=== PATIENT | male | born 1940 | race Caucasian/White ===

== ENCOUNTER → 2022-02-06 14:41 | Outpatient (BNVA) | payer MEDICARE, OTHER, SELFPAY | PROVIDERS: Family Provider Nurse Practitioner Family; PCP Family Medicine; Visit Provider Internal Medicine Cardiovascular Disease | DX: R06.02 Shortness of breath (principal); R94.31 Abnormal electrocardiogram [ECG] [EKG]; E78.2 Mixed hyperlipidemia; I07.1 Rheumatic tricuspid insufficiency; R00.2 Palpitations; F17.200 Nicotine dependence, unspecified, uncomplicated; I44.4 Left anterior fascicular block | CPT/HCPCS: 93005; 99204 ==

== ENCOUNTER 2022-02-27 12:15 | Outpatient (CLI) | payer MEDICARE, OTHER, SELFPAY ==
--- NOTE | 2022-02-27 13:00 | USCV_ITS ---
Lee Aiken Age: 81 Gender: M : 1940 Exam Date: 02/27/2022 12:54 Ordering Phys: Jarvis Delgadillo MD ([email or web address]) Technologist: TODD [place] [facility] [place]ication: sob, light headed BP: 130 / 70 HR: 53 Rhythm: Sinus Technical Quality: adequate MEASUREMENTS (Male / Female) Normal Values 2D ECHO LV Diastolic Diameter PLAX 3.7 cm 4.2 - 5.9 / 3.9 - 5.3 cm LV Systolic Diameter PLAX 1.5 cm IVS Diastolic Thickness 1.3 cm 0.6 - 1.0 / 0.6 - 0.9 cm IVS Systolic Thickness 1.9 cm LVPW Diastolic Thickness 1.4 cm 0.6 - 1.0 / 0.6 - 0.9 cm LVPW Systolic Thickness 2.0 cm LVOT Diameter 2.0 cm LV Ejection Fraction 2D Teich 89.8 % LV Ejection Fraction MOD 2C 57.9 % LV Ejection Fraction 2C AL 57.5 % LA Diameter 3.8 cm RA Width 3.5 cm RA Height 4.9 cm Aorta at Sinotubular Diameter 2.9 cm M-MODE MV E Point Septal Separation 0.2 cm DOPPLER AV Peak Velocity 111.0 cm/s LVOT Peak Velocity 94.0 cm/s AV Area Cont Eq vti 2.2 cm squared AV Area Cont Eq pk 2.7 cm squared MV Area PHT 3.3 cm squared MV E' Velocity 44.5 cm/s Mitral E to MV E' Ratio 12.7 Mitral E to LV E' Lateral Ratio 13.1 Mitral E to LV E' Septal Ratio 12.4 TR Peak Velocity 283.3 cm/s TR Peak Gradient 32.1 mmHg Right Atrial Pressure 8.0 mmHg Pulmonary Artery Systolic Pressu 40.1 mmHg PV Peak Velocity 68.0 cm/s FINDINGS Left Ventricle Normal left ventricular size and systolic function, EF 64 %. Mild left ventricular hypertrophy. No regional wall motion abnormalities. Grade I/IV diastolic dysfunction (abnormal relaxation filling pattern), normal to mildly elevated filling pressures. Right Ventricle The right ventricle is normal in size and function. Right Atrium The right atrium is normal in size. Left Atrium The left atrium is normal in size. Mitral Valve Thickened mitral valve. Mild mitral annular calcification. Trace mitral valve regurgitation. Aortic Valve Thickened aortic valve. Tricuspid Valve Mild tricuspid valve regurgitation. Pulmonic Valve Pulmonic valve not well visualized. Pericardium Normal pericardium without effusion. Aorta Normal ascending aorta dimension. IVC Normal inferior vena cava. CONCLUSIONS Normal left ventricular size and systolic function, EF 64 %. Mild left ventricular hypertrophy. No regional wall motion abnormalities. Grade I/IV diastolic dysfunction (abnormal relaxation filling pattern), normal to mildly elevated filling pressures. Thickened mitral valve. Mild mitral annular calcification. Trace mitral valve regurgitation. Thickened aortic valve. Mild tricuspid valve regurgitation. Mild pulmonary hypertension, estimated pulmonary artery peak systolic pressure 40 mmHg There is no pericardial effusion. There are no intracardiac masses. No similar previous studies are available for comparison Dr Jarvis Delgadillo MD [facility] (Electronically Signed) Final Date: 28 February 2022 01:15 S
== END 2022-02-27 12:16 | disposition home or self-care (01) ==
PROVIDERS: PCP Family Medicine; Visit Provider Internal Medicine Cardiovascular Disease
DX: R06.00 Dyspnea, unspecified (principal); I08.3 Combined rheumatic disorders of mitral, aortic and tricuspid valves; I27.20 Pulmonary hypertension, unspecified
CPT/HCPCS: 93306

== ENCOUNTER 2022-04-07 06:39 | Outpatient (CLI) | payer MEDICARE, OTHER, SELFPAY ==
--- NOTE | 2022-04-07 | ECG_ITS ---
[facility] Test Date: 2022-04-07 Pat Name: Lee Aiken Department: Room: Gender: Male Plan Consultant: Rena Carney : 1940 Requested By: Jarvis Delgadillo Order Number: [id number] Nayan MD: Hui Torre M.D. Interpretive Statements NAME OF STUDY: LEXISCAN SESTAMIBI STRESS TEST INDICATION: SOB, fatigue PROCEDURE: At the baseline, the blood pressure was 128/79 mmHg with a heart rate of 51 bpm. The electrocardiogram showed sinus bradycardia with PAC, left anterior fascicular block. Possible old septal infarct. The Lexiscan was infused over a period of 20 seconds. A total of 0.4 milligrams of Lexiscan was infused. The stress phase was continued for a total of 5 minutes. Heart rate at the end of the stress phase was 73 bpm with a blood pressure of 121/61 mmHg. The EKG at the peak infusion revealed sinus rhythm at 73 bpm with no significant ST-T wave changes. The study was terminated due to protocol completion. Sestamibi was injected 20 seconds after the Lexiscan infusion. Blood pressure at the end of the recovery phase was 135/70 mmHg with a heart rate of 74 beats per minute. CONCLUSION: 1. No significant EKG changes with the LexiScan infusion. 2. No LexiScan induced chest pain or cardiac arrhythmia. 3. Normal blood pressure and heart rate response. 4. Sestamibi/sestamibi perfusion scan pending; see separate report. Electronically Signed On 04-10-2022 12:48:38 CDT by Hui Torre M.D. [id number]
[2022-04-07 06:54] VITALS: BMI 25.0
--- NOTE | 2022-04-07 06:54 | NMCV_ITS ---
NM salma perf SPECT r/s* [id number] Lee Aiken Age: 82 Gender: M : 1940 Exam Date: 04/07/2022 07:48 Ordering Phys: Jarvis Delgadillo MD ([email or web address]) Technologist: ALVINA Bullard Exam Location: [facility] Indications: CHEST PAIN STRESS TEST Please see separate stress test report in [facility] for full findings IMAGE PROTOCOL Rest/Stress 1 Lexiscan Day Radiopharmaceutical Dose (mCi) Administration Site Administered by Rest: Tc-99m 10.7 IV ALVINA Sharma Sestamibi Stress:Tc-99m 32.5 IV ALVINA Sharma Sestamibi Rest: 07-Apr-2022 60 Discovery 630 Stress: 07-Apr-2022 30 Discovery 630 0.4mg Lexiscan. Images obtained in supine and prone position. SPECT RESULTS Technical Quality: Excellent Raw Data Analysis: Normal Image Corrections: No attenuation or motion correction applied Summed Stress Score: 0 Summed Rest Score: 0 Summed Difference Score: 0 PERFUSION FINDINGS SPECT images demonstrate homogeneous tracer distribution throughout the myocardium. FUNCTIONAL RESULTS (calculated via Gated SPECT) Stress Image LV EF (%): 67 Stress EDV (mL):97 TID: 0.96 Stress ESV (mL):32 FUNCTIONAL FINDINGS: The left ventricle is normal in size. Transient Ischemia Dilatation of 0.96. There is normal left ventricular systolic function. The left ventricular ejection fraction is normal with a value of 67%. There is normal left ventricular wall thickening. IMPRESSIONS 1. Myocardial perfusion imaging is normal. 2. Overall left ventricular systolic function is normal without regional wall motion abnormalities, LVEF=67%. 3. No EKG changes with Lexiscan infusion. Refer to separate report for details. Hui Torre MD (Electronically Signed) Final Date: 10 April 2022 12:44 S
[2022-04-07] MEDS: regadenoson 0.4 Mg/5 ml Syringe IVP (08:31)
[2022-04-07 08:39] VITALS: BP 135/70; PULSE 75
== END 2022-04-07 06:40 | disposition home or self-care (01) ==
LOC: CDL 06:42
PROVIDERS: PCP Family Medicine; Visit Provider Internal Medicine Cardiovascular Disease
DX: R07.9 Chest pain, unspecified (principal)
CPT/HCPCS: 78452; 93017; A9500; J2785

== ENCOUNTER → 2022-05-22 15:06 | Outpatient (BNVA) | payer MEDICARE, OTHER, SELFPAY | PROVIDERS: PCP Family Medicine; Visit Provider Internal Medicine Cardiovascular Disease | DX: I44.7 Left bundle-branch block, unspecified (principal); E78.2 Mixed hyperlipidemia; R00.2 Palpitations; R06.02 Shortness of breath; I07.1 Rheumatic tricuspid insufficiency | CPT/HCPCS: 99214 ==

== ENCOUNTER → 2022-12-05 13:41 | Outpatient (BNVA) | payer MEDICARE, OTHER, SELFPAY | PROVIDERS: PCP Family Medicine; Visit Provider Internal Medicine Cardiovascular Disease | DX: R53.83 Other fatigue (principal); I44.7 Left bundle-branch block, unspecified; E78.2 Mixed hyperlipidemia; R00.2 Palpitations; R06.02 Shortness of breath; F17.200 Nicotine dependence, unspecified, uncomplicated | CPT/HCPCS: 99214 ==

== ENCOUNTER → 2023-03-20 08:30 | Outpatient (BNVA) | payer MEDICARE, SELFPAY | PROVIDERS: PCP Family Medicine; Visit Provider Nurse Practitioner Family | DX: L57.0 Actinic keratosis (principal); L72.0 Epidermal cyst; L81.4 Other melanin hyperpigmentation; D22.5 Melanocytic nevi of trunk; L98.8 Other specified disorders of the skin and subcutaneous tissue; L57.8 Other skin changes due to chronic exposure to nonionizing radiation; L70.8 Other acne | CPT/HCPCS: 17000; 17003; 99213 ==

== ENCOUNTER → 2023-06-19 13:06 | Outpatient (BNVA) | payer MEDICARE, OTHER, SELFPAY | PROVIDERS: PCP Family Medicine; Visit Provider Nurse Practitioner Family | DX: E78.2 Mixed hyperlipidemia (principal); R06.02 Shortness of breath; R00.2 Palpitations; F17.200 Nicotine dependence, unspecified, uncomplicated | CPT/HCPCS: 99214 ==

== ENCOUNTER → 2023-06-28 08:43 | Outpatient (BNVA) | payer MEDICARE, OTHER, SELFPAY | PROVIDERS: PCP Family Medicine; Visit Provider Nurse Practitioner Family | DX: E78.2 Mixed hyperlipidemia (principal) | CPT/HCPCS: 80061 ==

== ENCOUNTER 2023-07-22 13:22 | Emergency (ER) | payer MEDICARE, OTHER, SELFPAY ==
[2023-07-22 13:24] VITALS: BP 138/82; PULSE 60; TEMP 36.9; O2SAT 97; BMI 26.2
--- NOTE | 2023-07-22 13:46 | XRR_ITS ---
PROCEDURE INFORMATION: Exam: XR Chest Exam date and time: 07/22/2023 2:05 PM Age: 83 years old Clinical indication: Other: Weakness; Additional info: [place] TECHNIQUE: Imaging protocol: Radiologic exam of the chest. Views: 1 view. COMPARISON: No relevant prior studies available. FINDINGS: Lungs: Unremarkable. No consolidation. Pleural spaces: No pneumothorax, mild cardiomegaly. Heart/Mediastinum: Unremarkable. No cardiomegaly. Bones/joints: Triangular shaped large opacity seen at the right hemithorax with associated mildly displaced posterior rib fractures likely chronic fractures. XR/XR chest 1V portable [id number] IMPRESSION: Triangular shaped opacity seen in the right hemithorax with associated mildly displaced posterior rib fractures. Further evaluation with CT of the chest may be obtained for further characterization.
--- NOTE | 2023-07-22 13:46 | CTR_ITS ---
PROCEDURE INFORMATION: Exam: CT Head Without Contrast Exam date and time: 07/22/2023 2:16 PM Age: 83 years old Clinical indication: Weakness, extremity; Additional info: Lle intermittent weakness TECHNIQUE: Imaging protocol: Computed tomography of the head without contrast. Radiation optimization: All CT scans at this facility use at least one of these dose optimization techniques: automated exposure control; mA and/or kV adjustment per patient size (includes targeted exams where dose is matched to clinical indication); or iterative reconstruction. REPORTING DATA: Count of CT and Cardiac NM exams in prior 12 months: This patient has received 0 known CTs and 0 known cardiac nuclear medicine studies in the 12 months prior to the current study. COMPARISON: No relevant prior studies available. RADIATION DOSE METRICS: Total DLP (mGy-cm): 1082.28 FINDINGS: Brain: No hemorrhage, mass effect or brain herniation. Basal cisterns are normal. Cerebral ventricles: Ventricles and Sulci are normal for age. Paranasal sinuses: Partial opacification and mucosal thickening of the left maxillary sinus, all other visualized paranasal sinuses are clear. Mastoid air cells: Mastoids are clear. Orbital cavities: Orbits are symmetric and without abnormality. Bones/joints: No acute fracture. No aggressive lytic or blastic lesions. Soft tissues: Unremarkable. CT/CT head wo con* [id number] IMPRESSION: No acute intracranial abnormality.
--- NOTE | 2023-07-22 13:59 | ECG_ITS ---
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 Measurements Intervals [place] Rate: 54 P: 91 AL: 202 QRS: -58 QRSD: 115 T: 75 QT: 406 QTc: 385 Interpretive Statements SINUS BRADYCARDIA WITH MARKED SINUS ARRHYTHMIA INCOMPLETE RIGHT BUNDLE BRANCH BLOCK [90+ ms QRS DURATION, TERMINAL R IN V1/V2, 40+ ms S IN I/aVL/V4/V5/V6] LEFT ANTERIOR FASCICULAR BLOCK [QRS AXIS <= -45, QR IN I, RS IN II] SEPTAL MYOCARDIAL INFARCTION , OF INDETERMINATE AGE [40+ ms Q WAVE IN V1/V2] No previous ECG available for comparison Electronically Signed On 07-22-2023 14:22:56 ORACLE EBS CONSULTANT by Paul Tim M.D. [id number]
[2023-07-22 14:08] VITALS: BP 159/82; PULSE 68; O2SAT 98
[2023-07-22 14:17] LABS: Basophils % 0.5 %; Eosinophils # 0.4 10^3/uL (0.0-0.8); Eosinophils % 5.5 %; Hematocrit 45.9 % (37-53); Lymphocytes # 2.5 10^3/uL (0.8-4.8); Lymphocytes % 33.5 %; Mean Corpuscular HGB Conc 33.6 g/dL (30-55); Mean Corpuscular Volume 95.4 fl (82-101); Mean Platelet Volume 11.2 fL (7.4-10.4); Monocytes # 0.7 10^3/uL (0.2-0.9); Monocytes % 8.9 %; Neutrophils # 3.74 10^3/uL (1.8-7.7); Neutrophils % 51.2 %; Nucleated Red Blood Cells % 0 %; Platelet Count 217 10^3/cmm (157-399); Red Blood Count 4.81 10^6/uL (3.85-5.65); Red Cell Distribution Width 14.5 % (12.1-15.1); White Blood Count 7.31 10^3/uL (3.29-11.43)
[2023-07-22 14:51] LABS: Alanine Aminotransferase 23 U/L (0-41); Alkaline Phosphatase 74 U/L (40-130); Aspartate Amino Transferase 21 U/L (0-40); Blood Urea Nitrogen 21 mg/dL (8-23); Calcium 9.7 mg/dL (8.5-10.5); Carbon Dioxide 22 mmol/L (22-29); Chloride 101 mmol/L (98-107); Globulin 3.1 g/dL (1.3-4.6); Glucose 105 mg/dL (65-115); Magnesium 1.9 mg/dL (1.7-2.3); Osmolality Calculated 279 mOsm/kg (285-295); Sodium 133 mmol/L (136-145); Total Bilirubin 0.2 mg/dL (0.15-1.2); Total Protein 7.1 g/dL (6.6-8.7)
--- NOTE | 2023-07-22 14:56 | ED_ITS ---
HPI - Weakness 2 General: Chief complaint: Weakness Stated complaint: WEAKNESS Time Seen by Provider: 07/22/23 13:38 History of Present Illness: Presents to the ER after his leg intermittently felt weak and gave way twice this morning. He said he could still move and walk but had to take baby steps can because he was afraid that he would give way and he would fall. Patient still was able to bear weight and he did not lose sensation to it. Patient says that this was not due to him sitting wrong and he was not asleep, no numbness tingling,. Patient said he is never had this happen before. All symptoms had resolved by time patient arrived to the ER. Patient is on 81 mg aspirin a day, Review of Systems 2 General: Reports: 10 or more systems reviewed and unremarkable except in HPI and below PFSH ED 2 PFSH: Medical History Mixed hyperlipidemia LBBB (left bundle branch block) Valvular heart disease Tricuspid regurgitation Family History Brother CAD (coronary artery disease), Onset Age: 60 Cancer Sister Lung disease Stroke Mother Stroke Sister Stroke Denies family history of Diabetes Clotting disorder Dementia Chronic kidney disease (CKD) Suicide Anesthesia complication Bleeding disorder Social History Smoking and tobacco/nicotine status: current every day tobacco/nicotine user Alcohol intake: current Alcohol intake frequency: few times a week Substance/Drug Use: never Physical Exam 2 Const: COMMON NORMALS: no acute distress, average body habitus, patient oriented x3, no limitations, healthy appearing, alert and well nourished HENMT: COMMON NORMALS: normocephalic, atraumatic, hearing grossly normal bilaterally, external ears normal, Normal external nose present, moist oral mucous membranes and oropharynx normal HEAD & SCALP: normocephalic and atraumatic NOSE: Normal external nose present EXTERNAL EAR: Yes external ears normal Eye: COMMON NORMALS: Equal, round and reactive pupils present, EOMs intact bilaterally, conjunctivae normal and no scleral icterus CONJUNCTIVA: Yes conjunctivae normal PUPIL: Yes Equal, round and reactive pupils present Neck/C-Spine: COMMON NORMALS: full ROM, no lymphadenopathy, supple, no meningeal signs, no JVD and Thyroid normal THYROID: Thyroid normal Chest: COMMONS NORMALS: normal inspection of the chest and normal palpation of entire chest wall Resp: COMMON NORMALS: normal respiratory effort, No retractions, No use of accessory muscles and clear to auscultation bilaterally AUSCULTATION: clear to auscultation bilaterally Cardio: COMMON NORMALS: no JVD, regular rate, regular rhythm, S1 normal heart sound present, S2 normal heart sound present, No gallops present (Cardio), No clicks present (Cardio), No murmurs present (Cardio) and No rub (Cardio) R ATE: regular rate RHYTHM: regular rhythm HEART SOUNDS: S1 normal heart sound present and S2 normal heart sound present GI: COMMON NORMALS: Normal to inspection, nondistended, normoactive bowel sounds present, Soft to palpation, non-tender, No hepatosplenomegaly present and no masses PALPATION: Yes Soft to palpation and Yes No hepatosplenomegaly present Neuro: COMMON NORMALS: patient oriented x3 SENSORIUM/ORIENTATION: Yes alert MENINGEAL SIGNS: Yes no meningeal signs Course 2 Vital Signs: Vital signs: Vital Signs Temperature 98.4 F 07/22/23 13:24 Pulse Rate 68 07/22/23 14:08 Blood Pressure 159/82 07/22/23 14:08 Pulse Oximetry 98 07/22/23 14:08 Oxygen Delivery Me thod Room Air 07/22/23 14:08 MDM - Weakness Medical Decision Making Presents to the ER with complaints of intermittent left leg weakness x 2 throughout the day. But this is totally resolved by time he got to the ER. Patient lab work done included CBC CMP, chest x-ray, head CT, CRP, TSH, magnesium, all of which did not show any acute abnormalities. This was discussed with the patient and family. Patient will be discharged home to follow-up with his PCP and/or neurologist within next 7 to 10 days as needed. Differential Diagnosis Unlikely acute myocardial infarction, anemia, hypoglycemia, hypothyroidism, rhabdomyolysis, sepsis or dehydration Medical Records I reviewed the patient's medical records. Lab Data I reviewed the patient's lab results. 07/22/23 12:43 07/22/23 12:43 Radiology Impressions Chest X-Ray 07/22/23 13:46 IMPRESSION: Triangular shaped opacity seen in the right hemithorax with associated mildly displaced posterior rib fractures. Further evaluation with CT of the chest may be obtained for further characterization. Head CT 07/22/23 13:46 IMPRESSION: No acute intracranial abnormality. Laboratory Results WBC 7.31 10^3/uL (3.29-11.43) 07/22/23 12:43 RBC 4.81 10^6/uL (3.85-5.65) 07/22/23 12:43 Hgb 15.40 g/dL (11.27-16.99) 07/22/23 12:43 Hct 45.9 % (37-53) 07/22/23 12:43 MCV 95.4 fl (82-101) 07/22/23 12:43 MCH 32.0 pg (27-33) 07/22/23 12:43 MCHC 33.6 g/dL (30-55) 07/22/23 12:43 RDW 14.5 % (12.1-15.1) 07/22/23 12:43 Plt Count 217 10^3/cmm (157-399) 07/22/23 12:43 MPV 11.2 fL (7.4-10.4) H 07/22/23 12:43 Neut % (Auto) 51.2 % 07/22/23 12:43 Lymph % (Auto) 33.5 % 07/22/23 12:43 [place] % (Auto) 8.9 % 07/22/23 12:43 Eos % (Auto) 5.5 % 07/22/23 12:43 Baso % (Auto) 0.5 % 07/22/23 12:43 Neut # (Auto) 3.74 10^3/uL (1.8-7.7) 07/22/23 12:43 Lymph # (Auto) 2.5 10^3/uL (0.8-4.8) 07/22/23 12:43 [place] # (Auto) 0.7 10^3/uL (0.2-0.9) 07/22/23 12:43 Eos # (Auto) 0.4 10^3/uL (0.0-0.8) 07/22/23 12:43 Baso # (Auto) 0.0 10^3/uL (0.0-0.1) 07/22/23 12:43 Nucleated RBC % (auto) 0 % 07/22/23 12:43 Nucleated RBCs # 0.0 /100WBC 07/22/23 12:43 Sodium 133 mmol/L (136-145) L 07/22/23 12:43 Potassium 4.0 mmol/L (3.5-5.1) 07/22/23 12:43 Chloride 101 mmol/L (98-107) 07/22/23 12:43 Carbon Dioxide 22 mmol/L (22-29) 07/22/23 12:43 Anion Gap 14.0 (5-19) 07/22/23 12:43 BUN 21 mg/dL (8-23) 07/22/23 12:43 Creatinine 1.0 mg/dL (0.7-1.2) 07/22/23 12:43 GFR Calculation Not Reportable 07/22/23 12:43 Glucose 105 mg/dL (65-115) 07/22/23 12:43 Calculated Osmolality 279 mOsm/kg (285-295) L 07/22/23 12:43 Calcium 9.7 mg/dL (8.5-10.5) 07/22/23 12:43 Magnesium 1.9 mg/dL (1.7-2.3) 07/22/23 12:43 Total Bilirubin 0.2 mg/dL (0.15-1.2) 07/22/23 12:43 AST 21 U/L (0-40) 07/22/23 12:43 ALT 23 U/L (0-41) 07/22/23 12:43 Alkaline Phosphatase 74 U/L (40-130) 07/22/23 12:43 C-Reactive Protein 3.0 mg/L (0.0-4.9) 07/22/23 12:43 Total Protein 7.1 g/dL (6.6-8.7) 07/22/23 12:43 Albumin 4.0 g/dL (3.5-5.2) 07/22/23 12:43 Globulin 3.1 g/dL (1.3-4.6) 07/22/23 12:43 TSH 1.90 uIU/mL (0.27-4.20) 07/22/23 12:43 All radiology interpretation(s) finalized by discharge EKG Data EKG 1: I personally reviewed and interpreted this EKG as follows: EKG interpretation date: 07/22/23 EKG interpretation time: 13:59 Prior EKG tracings: not available for review Interpretation: EKG showed ventricular rate 54 beats minute, AL interval 202, QRS duration 115, QTc 391, sinus bradycardia with marked sinus arrhythmia, Discharge Plan Discharge Patient Disposition: Home Clinical Impression: Transient weakness of left lower extremity Condition: Stable Prescriptions: No Action atorvastatin 20 mg tablet 20 mg PO QPM primidone 50 mg tablet 50 mg PO BEDTIME aspirin [Adult Aspirin Regimen] 81 mg tablet,delayed release (DR/EC) 81 mg PO DAILY dorzolamide-timolol 22.3-6.8 mg/mL drops 1 drp ophthalmic (eye) BID Discharge Orders: Discharge ED (Routine); Ordered 07/22/23 Ordered By: Kashif Grimm Referrals: Phil Herr [Primary Care Provider] - 1 week Patient Instructions: Weakness (ED) Activity Restrictions/Additional Instructions: All of your workup including labs, chest x-ray, head CT did not show any acute cause of your intermittent weakness. Please follow-up with your family practice physician or or neurologist within the next 7 to 10 days for further evaluation and treatment. If your symptoms return please feel free to return to the ER. Coding Level of Care Code ED Actuarial Intern for Naif Fraire
== END 2023-07-22 16:49 | disposition home or self-care (01) ==
PROVIDERS: Emergency Provider Emergency Medicine; PCP Family Medicine
DX: R53.1 Weakness (principal); Z79.82 Long term (current) use of aspirin; E78.2 Mixed hyperlipidemia; Z72.0 Tobacco use
CPT/HCPCS: 70450; 71045; 80053; 83735; 84443; 85025; 86140; 93005; 99285

== ENCOUNTER 2023-12-05 08:01 | Emergency (ER) | payer MEDICARE, SELFPAY ==
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
--- NOTE | 2023-12-05 08:05 | ECG_ITS ---
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 Measurements Intervals [place] Rate: 65 P: 67 CT: 188 QRS: -54 QRSD: 122 T: 75 QT: 397 QTc: 413 Interpretive Statements SINUS RHYTHM LEFT ANTERIOR FASCICULAR BLOCK [QRS AXIS <= -45, QR IN I, RS IN II] SEPTAL MYOCARDIAL INFARCTION , PROBABLY OLD [40+ ms Q WAVE IN V1/V2] Compared to ECG 07/22/2023 13:59:32 Sinus bradycardia no longer present Sinus arrhythmia no longer present Incomplete right bundle-branch block no longer present Myocardial infarct finding still present Electronically Signed On 12-05-2023 16:24:47 CDT by Paul Tim M.D. [id number]
[2023-12-05 08:09] VITALS: BP 131/67; PULSE 70; RESP 20; TEMP 36.8; O2SAT 98; BMI 26.3
[2023-12-05 08:33] VITALS: BP 131/67; PULSE 70; RESP 20; O2SAT 98
--- NOTE | 2023-12-05 08:37 | ED_ITS ---
HPI - Abdominal Pain 2 General: Chief Complaint: Abdominal Pain Stated Complaint: left side rib pain Time Seen by Provider: 12/05/23 08:03 Source: patient Mode of arrival: ambulatory History of Present Illness: 83-year-old male presents emergency room complaining of left lower rib pain. His son gave him a bear hug couple of days ago initially felt a popping sensation a lot of pain and now it 3 days later he is increasing pain in the left lower ribs. No shortness of breath no cough pain worse with deep inspiration. With aggressive palpation over the right lower ribs at the anterior axillary line and anteriorly can reproduce some of the discomfort. MD elicited complaint: abdominal pain Onset (ago): hour(s) Pain Consistency: intermittent Location: Chest (wall, lower left) Severity: mild Exacerbating factors: nothing Relieving factors: nothing Associated Symptoms: Denies anorexia, belching, bloating, change in bowel habits, change in stool character, chills, coffee ground emesis, constipation, GI cramping, diarrhea, dyspepsia, dysuria, excessive flatus, fever(s), heartburn, hematochezia, hematuria, hematemesis, fecal incontinence, loose stools, melena, nausea, poor appetite, syncope and vomiting Review of Systems 2 Const: Denies: fever(s) or chills Card: Denies: chest pain or syncope Resp: Denies: dyspnea GI: Denies: abdominal pain, nausea, vomiting, hematemesis, coffee ground emesis, heartburn, diarrhea, constipation, bloating, GI cramping, belching, excessive flatus, fecal incontinence, change in bowel habits, change in stool character, hematochezia or melena : Denies: dysuria, urinary frequency, urinary urgency or hematuria Musc: Denies: neck pain or back pain Skin/Breast: Denies: rash PFSH ED 2 PFSH: Medical History Mixed hyperlipidemia LBBB (left bundle branch block) Valvular heart disease Tricuspid regurgitation Family History Brother CAD (coronary artery disease), Onset Age: 60 Cancer Sister Lung disease Stroke Mother Stroke Sister Stroke Denies family history of Diabetes Clotting disorder Dementia Chronic kidney disease (CKD) Suicide Anesthesia complication Bleeding disorder Social History Smoking and tobacco/nicotine status: current every day tobacco/nicotine user Alcohol intake: current Alcohol intake frequency: few times a week Substance/Drug Use: never Physical Exam 2 Const: COMMON NORMALS: no acute distress GENERAL APPEARANCE: cooperative and comfortable ORIENTATION/CONSCIOUSNESS: Yes awake, Yes oriented to person, Yes oriented to place and Yes oriented to time HENMT: COMMON NORMALS: normocephalic, atraumatic and hearing grossly normal bilaterally HEAD & SCALP: normocephalic and atraumatic Resp: COMMON NORMALS: normal respiratory effort, No retractions, No use of accessory muscles and clear to auscultation bilaterally AUSCULTATION: clear to auscultation bilaterally Cardio: COMMON NORMALS: regular rate, regular rhythm and No murmurs present (Cardio) RATE: regular rate RHYTHM: regular rhythm GI: COMMON NORMALS: Soft to palpation and No hepatosplenomegaly present A USCULTATION: Yes normoactive bowel sounds PALPATION: Yes Soft to palpation, No Tenderness to palpation present (GI), No Guarding due to palpation present (GI) and Yes No hepatosplenomegaly present Extremity: COMMON NORMALS: normal to inspection, capillary refill normal, no clubbing, cyanosis or edema, no calf tenderness and no pedal edema Neuro: SENSORIUM/ORIENTATION: Yes oriented to person, Yes oriented to place and Yes oriented to time Skin: COMMON NORMALS: no rashes or lesions noted GENERAL SKIN EXAM: no rashes or lesions noted Course 2 Vital Signs: Vital signs: Vital Signs Temperature 98.2 F 12/05/23 08:09 Pulse Rate 59 L 12/05/23 10:11 Respiratory Rate 16 12/05/23 09:22 Blood Pressure 136/71 12/05/23 09:22 Pulse Oximetry 97 12/05/23 10:11 Oxygen Delivery Me thod Room Air 12/05/23 09:22 MDM - Abdominal Pain Medical Decision Making No acute fractures on x-ray with rib detail chest x-ray is otherwise unremarkable remainder the labs are negative for any acute findings. Treat for pain suspect may had a disruption or or irritation of the costochondral junction that accounted for the popping sensation he reported. Given tramadol to use as needed can use ice to the area follow-up with primary care if not improving Medical Records I reviewed the patient's medical records. Lab Data I reviewed the patient's lab results. 12/05/23 08:25 12/05/23 08:25 Labs/Radiology: Radiology Impressions Ribs X-Ray 12/05/23 08:04 IMPRESSION: 1. No acute displaced rib fractures. 2. No acute cardiopulmonary findings. 3. Additional findings as above. Laboratory Results WBC 8.29 10^3/uL (3.29-11.43) 12/05/23 08:25 RBC 4.64 10^6/uL (3.85-5.65) 12/05/23 08:25 Hgb 14.90 g/dL (11.27-16.99) 12/05/23 08:25 Hct 44.8 % (37-53) 12/05/23 08:25 MCV 96.6 fl (82-101) 12/05/23 08:25 MCH 32.1 pg (27-33) 12/05/23 08:25 MCHC 33.3 g/dL (30-55) 12/05/23 08:25 RDW 14.6 % (12.1-15.1) 12/05/23 08:25 Plt Count 210 10^3/cmm (157-399) 12/05/23 08:25 MPV 9.9 fL (7.4-10.4) 12/05/23 08:25 Neut % (Auto) 58.7 % 12/05/23 08:25 Lymph % (Auto) 27.6 % 12/05/23 08:25 [place] % (Auto) 8.7 % 12/05/23 08:25 Eos % (Auto) 4.3 % 12/05/23 08:25 Baso % (Auto) 0.5 % 12/05/23 08:25 Neut # (Auto) 4.86 10^3/uL (1.8-7.7) 12/05/23 08:25 Lymph # (Auto) 2.3 10^3/uL (0.8-4.8) 12/05/23 08:25 [place] # (Auto) 0.7 10^3/uL (0.2-0.9) 12/05/23 08:25 Eos # (Auto) 0.4 10^3/uL (0.0-0.8) 12/05/23 08:25 Baso # (Auto) 0.0 10^3/uL (0.0-0.1) 12/05/23 08:25 Nucleated RBC % (auto) 0 % 12/05/23 08:25 Nucleated RBCs # 0.0 /100WBC 12/05/23 08:25 Sodium 140 mmol/L (136-145) 12/05/23 08:25 Potassium 4.2 mmol/L (3.5-5.1) 12/05/23 08:25 Chloride 103 mmol/L (98-107) 12/05/23 08:25 Carbon Dioxide 26 mmol/L (22-29) 12/05/23 08:25 Anion Gap 15.2 (5-19) 12/05/23 08:25 BUN 22 mg/dL (8-23) 12/05/23 08:25 Creatinine 1.1 mg/dL (0.7-1.2) 12/05/23 08:25 GFR Calculation Not Reportable 12/05/23 08:25 Glucose 81 mg/dL (65-115) 12/05/23 08:25 Calculated Osmolality 292 mOsm/kg (285-295) 12/05/23 08:25 Calcium 9.2 mg/dL (8.5-10.5) 12/05/23 08:25 Total Bilirubin 0.3 mg/dL (0.15-1.2) 12/05/23 08:25 AST 25 U/L (0-40) 12/05/23 08:25 ALT 17 U/L (0-41) 12/05/23 08:25 Alkaline Phosphatase 84 U/L (40-130) 12/05/23 08:25 Total Protein 7.8 g/dL (6.6-8.7) 12/05/23 08:25 Albumin 4.2 g/dL (3.5-5.2) 12/05/23 08:25 Globulin 3.6 g/dL (1.3-4.6) 12/05/23 08:25 All radiology interpretation(s) finalized by discharge Discharge Plan Discharge Patient Disposition: Home Clinical Impression: Acute chest wall pain Condition: Stable Prescriptions: New tramadol 50 mg tablet 50 mg PO Q8H PRN (Reason: pain) Qty: 14 0RF No Action atorvastatin 20 mg tablet 20 mg PO QPM primidone 50 mg tablet 50 mg PO BEDTIME aspirin [Adult Aspirin Regimen] 81 mg tablet,delayed release (DR/EC) 81 mg PO DAILY ibuprofen 200 mg Tablet 1,200 mg PO Q6H PRN (Reason: Pain) Discharge Orders: Discharge ED (Routine); Ordered 12/05/23 Ordered By: Andrea Rosado Referrals: Phil Herr [Primary Care Provider] - Discharge Diet: Usual diet Discharge Activity: Increase activity as tolerated Patient Instructions: Opioid Safety, Pain Management Activity Restrictions/Additional Instructions: Thank you for choosing [facility] for your healthcare needs today. Please realize this is an emergency room and that we are providing you with a medical screening exam and this may not be complete and all inclusive of all the testing and or work up that you may need to determine your ailment or severity of your illness. It is very important that you follow up as instructed or that you return to the Emergency Department should you have concerns or if your condition changes or worsens in any way. You are seen today with complaint of rib pain. X-rays did not show any acute fractures, chest x-ray was normal. Suspect this pain may emanate from the costochondral junction. You can use tramadol as needed for pain as well as ice to the area follow-up with your primary care doctor if not improving. Coding Level of Care Code ED Operations Administrator for Naif Fraire
[2023-12-05 08:42] LABS: Basophils % 0.5 %; Eosinophils # 0.4 10^3/uL (0.0-0.8); Eosinophils % 4.3 %; Hematocrit 44.8 % (37-53); Lymphocytes # 2.3 10^3/uL (0.8-4.8); Lymphocytes % 27.6 %; Mean Corpuscular HGB Conc 33.3 g/dL (30-55); Mean Corpuscular Hemoglobin 32.1 pg (27-33); Mean Corpuscular Volume 96.6 fl (82-101); Mean Platelet Volume 9.9 fL (7.4-10.4); Monocytes # 0.7 10^3/uL (0.2-0.9); Monocytes % 8.7 %; Neutrophils # 4.86 10^3/uL (1.8-7.7); Neutrophils % 58.7 %; Nucleated Red Blood Cells % 0 %; Platelet Count 210 10^3/cmm (157-399); Red Blood Count 4.64 10^6/uL (3.85-5.65); Red Cell Distribution Width 14.6 % (12.1-15.1); White Blood Count 8.29 10^3/uL (3.29-11.43)
[2023-12-05 09:11] LABS: Alanine Aminotransferase 17 U/L (0-41); Albumin Level 4.2 g/dL (3.5-5.2); Alkaline Phosphatase 84 U/L (40-130); Anion Gap 15.2 (5-19); Aspartate Amino Transferase 25 U/L (0-40); Blood Urea Nitrogen 22 mg/dL (8-23); Calcium 9.2 mg/dL (8.5-10.5); Carbon Dioxide 26 mmol/L (22-29); Chloride 103 mmol/L (98-107); Creatinine Clr Calc Pharmacy 52.2519; Globulin 3.6 g/dL (1.3-4.6); Glucose 81 mg/dL (65-115); Osmolality Calculated 292 mOsm/kg (285-295); Potassium 4.2 mmol/L (3.5-5.1); Sodium 140 mmol/L (136-145); Total Bilirubin 0.3 mg/dL (0.15-1.2); Total Protein 7.8 g/dL (6.6-8.7)
[2023-12-05 09:22] VITALS: BP 136/71; PULSE 59; RESP 16; O2SAT 96
[2023-12-05 10:11] VITALS: PULSE 59; O2SAT 97
== END 2023-12-05 10:13 | disposition home or self-care (01) ==
PROVIDERS: Emergency Provider Family Medicine; PCP Family Medicine
DX: R07.89 Other chest pain (principal); Z79.82 Long term (current) use of aspirin; Z72.0 Tobacco use; E78.2 Mixed hyperlipidemia
CPT/HCPCS: 71101; 80053; 85025; 93005; 99285

== ENCOUNTER → 2024-05-19 10:10 | Outpatient (BNVA) | payer MEDICARE, OTHER, SELFPAY | PROVIDERS: PCP Family Medicine; Visit Provider Nurse Practitioner Family | DX: L72.0 Epidermal cyst (principal); L81.4 Other melanin hyperpigmentation; D22.5 Melanocytic nevi of trunk; L57.8 Other skin changes due to chronic exposure to nonionizing radiation; L98.8 Other specified disorders of the skin and subcutaneous tissue; L57.0 Actinic keratosis; D69.2 Other nonthrombocytopenic purpura | CPT/HCPCS: 17000; 99213 ==